=== PATIENT | male | born 1935 | race Caucasian/White ===

== ENCOUNTER 2018-02-12 09:10 | Emergency (ER) | payer MEDICARE, OTHER ==
[~2018-02-12] VITALS: Ht 180.3 cm; Wt 81.8 kg
[2018-02-12 09:18] VITALS: BP 120/66
== END 2018-02-12 10:09 | disposition home or self-care (01) ==
LOC: ER 09:10
DX: S61.210D Laceration without foreign body of right index finger without damage to nail, subsequent encounter (principal); Z88.4 Allergy status to anesthetic agent; W26.0XXD Contact with knife, subsequent encounter
CPT/HCPCS: 99281